=== PATIENT | female | born 1970 | race Caucasian/White ===

== ENCOUNTER → 2021-09-24 | Outpatient (CLI) | payer OTHER ==
--- NOTE | 2021-09-24 14:24 | KCIC ---
Bilateral digital screening mammograms: Reason for examination: Routine screening. Comparison is made to previous study dated 05/05/2014. Interpretation was made with the benefit of CAD. The skin and nipples show no abnormalities. No abnormal axillary lymph nodes are seen. The breast par enchyma shows scattered fibroglandular density. (Breast density: Category B.) There are no dominant m asses, suspicious calcifications or architectural distortions. Impression: No evidence of malignancy. Recommend routine screening. BI-RADS Category 1: Negative. "Our facility is accredited by the [employer] Mammography Program." This patient's information has been entered into a reminder system for the patient to be notified wit h the results of her examination and a target date for the next mammogram. Electronically signed by: Livier Lugo MD (09/24/2021 2:21 PM) [id number]
== END ==
LOC: KCIC MAMMO 13:41
PROVIDERS: ATTEND Physician Assistant
DX: Z12.31 Encounter for screening mammogram for malignant neoplasm of breast (principal)
CPT/HCPCS: 77067

== ENCOUNTER 2022-01-01 08:08 | Emergency (ER) | payer OTHER ==
[~2022-01-01] VITALS: Ht 149.9 cm; Wt 72.7 kg
[2022-01-01] MEDS ORDERED: IV NORMAL SALINE 1000ML BAG 1,000 ML IV SCH (08:30)
[2022-01-01] MEDS ORDERED: HYDROmorphone 2 MG/ML INJ. IVP ONE ×2 (08:30→10:15)
[2022-01-01 08:32] LABS: BASO # 0.1 x10^3/uL (0.0-0.2); BASO % 1 % (0-3); EOS # 0.1 x10^3/uL (0.0-0.7); EOS % 1 % (0-3); HEMOGLOBIN 14.3 g/dL (12.0-15.5); LYMPH # 1.9 x10^3/uL (1.0-4.8); LYMPH % 15 % (24-48); MEAN CORPUSCULAR HEMOGLOBIN 29 pg (25-35); MEAN CORPUSCULAR HGB CONC 33 g/dL (31-37); MEAN CORPUSCULAR VOLUME 89 fL (79-100); MONO # 0.7 x10^3/uL (0.0-1.1); MONO % 6 % (0-9); NEUT # 9.6 x10^3/uL (1.8-7.7); NEUT % 77 % (31-73); PLATELET COUNT 393 x10^3/uL (140-400); RED BLOOD COUNT 4.86 x10^6/uL (3.50-5.40); RED CELL DISTRIBUTION WIDTH 14.1 % (11.5-14.5); WHITE BLOOD COUNT 12.5 x10^3/uL (4.0-11.0)
[2022-01-01 08:43] LABS: CALCIUM 8.9 mg/dL (8.5-10.1); CREATININE 0.9 mg/dL (0.6-1.0); GFR 66.3
[2022-01-01 08:45] LABS: AMORPHOUS SEDIMENT,UR PRESENT /HPF; BACTERIA,URINE FEW /HPF (0-FEW); RBC,URINE 0 /HPF (0-2)
[2022-01-01 08:47] LABS: BARBITURATES NEG (NEG); BENZODIAZEPINES NEG (NEG); CANNABINOIDS NEG (NEG); COCAINE NEG (NEG); METHADONE NEG (NEG); OPIATES NEG (NEG); PHENCYCLIDINE NEG (NEG)
[2022-01-01 08:48] LABS: AMPHETAMINE/METHAMPHETAMINE NEG (NEG)
[2022-01-01 08:49] LABS: ALBUMIN 3.8 g/dL (3.4-5.0); TOTAL BILIRUBIN 0.3 mg/dL (0.2-1.0); TOTAL PROTEIN 7.7 g/dL (6.4-8.2)
--- NOTE | 2022-01-01 08:49 | RAD ---
INDICATION: Reason: RUQ pain / Spl. Instructions: / History: COMPARISON: None. TECHNIQUE: Grayscale and color ultrasound images obtained through the abdomen. FINDINGS: Pancreas: Visualized portions unremarkable. Liver: Liver is moderately echogenic. Gallbladder: Gallbladder is distended measuring up to 96 mm. Definite stones not seen. Common Bile Duct: Not dilated. Right Kidney: No hydronephrosis. Aorta/IVC: Visualized portion unremarkable. IMPRESSION: * Liver is echogenic. Nonspecific but can be seen with fatty infiltration. * Gallbladder is distended without definite stones. This can be seen with the patient not eating rec ently but would correlate with symptoms to ensure there is not a pathologic cause such as hydrops. Electronically signed by: Cristobal Victor MD (01/01/2022 8:46 AM) [id number]
[2022-01-01] MEDS ORDERED: IOHEXOL 300 MG/ML 100ML VIAL. IV ONE (09:15)
--- NOTE | 2022-01-01 09:53 | RAD ---
EXAMINATION: CT abdomen and pelvis with IV contrast. INDICATION:51 years, Female, epigastric pain. TECHNIQUE: Axial CT images of the abdomen and pelvis were obtained. Coronal and sagittal reformatted performed. COMPARISON: Same day ultrasound. Exposure: One or more of the following individualized dose reduction techniques were utilized for thi s examination: 1. Automated exposure control 2. Adjustment of the mA and/or kV according to patient size 3. Use of iterative reconstruction technique. FINDINGS: LOWER CHEST: Unremarkable. ABDOMEN/PELVIS: Normal size and morphology of the liver with homogeneous enhancement. No suspicious focal hepatic les ion. Mild gallbladder hydrops. No gallbladder wall thickening or pericholecystic fat stranding. Tiny calcified phthisis in the gallbladder neck. No biliary ductal dilation. Spleen and pancreas are unrem arkable. No adrenal nodule. No hydronephrosis in either kidney. Simple 3.3 cm left renal cyst. No bow el dilation. Normal appendix. Patent abdominal vasculatures. No lymphadenopathy. No pneumoperitoneum or ascites. Unremarkable urinary bladder and uterus. No suspicious pelvic masses. MUSCULOSKELETAL STRUCTURES: No acute osseous process or suspicious lesion. IMPRESSION: 1. Mild gallbladder hydrops with tiny calcified cholelithiasis in the neck. No other CT evidence of a cute cholecystitis. 2. Simple 3.3 cm left renal cyst. Electronically signed by: Janell Bear MD (01/01/2022 9:51 AM) [id number]
[2022-01-01] MEDS ORDERED: HYDR-2761 PO (10:08)
[2022-01-01] MEDS ORDERED: SULF1TAB24 PO (10:14)
[2022-01-01] MEDS ORDERED: IV NORMAL SALINE 1000ML BAG 1,000 ML IV ONE (10:15)
--- NOTE | 2022-01-01 11:20 | PHYS DOC ---
Past Medical History Past Surgical History: Tubal ligation, Other Additional Past Surgical Histo: lap for endometriosis Smoking Status: Never Smoker Alcohol Use: Occasionally General Adult EDM: Chief Complaint: ABDOMINAL PAIN HPI: HPI: Patient is a 51 year old female with no past medical history presents with right upper quadrant pain. Patient states that she ate a few sloppy Von's last night. Patient states that her pain started at 2 in the morning. She has never been diagnosed with gallstones. She states that her right upper quadrant hurts, she has nausea associated with it. Otherwise she is doing well. This is never happened before. She has no other systemic symptoms. Review of Systems: Review of Systems: Constitutional: Denies fever or chills. [] Eyes: Denies change in visual acuity. [] HENT: Denies nasal congestion or sore throat. [] Respiratory: Denies cough or shortness of breath. [] Cardiovascular: Denies chest pain or edema. [] GI: Positive abdominal pain, nausea, no vomiting, bloody stools or diarrhea. [] : Denies dysuria. [] Musculoskeletal: Denies back pain or joint pain. [] Integument: Denies rash. [] Neurologic: Denies headache, focal weakness or sensory changes. [] Endocrine: Denies polyuria or polydipsia. [] Lymphatic: Denies swollen glands. [] Psychiatric: Denies depression or anxiety. [] Heart Score: C/O Chest Pain: No Risk Factors: Risk Factors: DM, Current or recent (<one month) smoker, HTN, HLP, family history of CAD, obesity. Risk Scores: Score 0 - 3: 2.5% MACE over next 6 weeks - Discharge Home Score 4 - 6: 20.3% MACE over next 6 weeks - Admit for Clinical Observation Score 7 - 10: 72.7% MACE over next 6 weeks - Early Invasive Strategies Current Medications: Current Medications Medications (Trade) Dose Ordered Sig/Eddi Start Time Stop Time Status Last Admin Dose Admin Hydromorphone HCl (Dilaudid) 1 mg 1X ONCE 01/01/22 10:15 01/01/22 10:16 DC 01/01/22 10:43 1 MG Iohexol (Omnipaque 300 Mg/ml) 75 ml 1X ONCE 01/01/22 09:15 01/01/22 09:16 DC 01/01/22 09:17 75 ML Sodium Chloride 1,000 ml @ 1,000 mls/hr 1X ONCE 01/01/22 10:15 01/01/22 11:14 DC 01/01/22 10:43 1,000 MLS/HR Allergies: Allergies: Allergies Coded Allergies Type Severity Reaction Last Updated Verified No Known Drug Allergies 01/01/22 No Physical Exam: PE: Constitutional: Well developed, well nourished, no acute distress, non-toxic appearance. [] HENT: Normocephalic, atraumatic, bilateral external ears normal, oropharynx moist, no oral exudates, nose normal. [] Eyes: PERRLA, EOMI, conjunctiva normal, no discharge. [] Neck: Normal range of motion, no tenderness, supple, no stridor. [] Cardiovascular:Heart rate regular rhythm, no murmur [] Lungs & Thorax: Bilateral breath sounds clear to auscultation [] Abdomen: Bowel sounds normal, soft, positive moderate right upper quadrant tenderness, no masses, no pulsatile masses. [] Skin: Warm, dry, no erythema, no rash. [] Back: No tenderness, no CVA tenderness. [] Extremities: No tenderness, no cyanosis, no clubbing, ROM intact, no edema. [] Neurologic: Alert and oriented X 3, normal motor function, normal sensory function, no focal deficits noted. [] Psychologic: Affect normal, judgement normal, mood normal. [] Current Patient Data: Labs: Laboratory Tests Test 01/01/22 08:23 White Blood Count 12.5 x10^3/uL (4.0-11.0) H Red Blood Count 4.86 x10^6/uL (3.50-5.40) Hemoglobin 14.3 g/dL (12.0-15.5) Hematocrit 43.0 % (36.0-47.0) Mean Corpuscular Volume 89 fL (79-100) Mean Corpuscular Hemoglobin 29 pg (25-35) Mean Corpuscular Hemoglobin Concent 33 g/dL (31-37) Red Cell Distribution Width 14.1 % (11.5-14.5) Platelet Count 393 x10^3/uL (140-400) Neutrophils (%) (Auto) 77 % (31-73) H Lymphocytes (%) (Auto) 15 % (24-48) L Monocytes (%) (Auto) 6 % (0-9) Eosinophils (%) (Auto) 1 % (0-3) Basophils (%) (Auto) 1 % (0-3) Neutrophils # (Auto) 9.6 x10^3/uL (1.8-7.7) H Lymphocytes # (Auto) 1.9 x10^3/uL (1.0-4.8) Monocytes # (Auto) 0.7 x10^3/uL (0.0-1.1) Eosinophils # (Auto) 0.1 x10^3/uL (0.0-0.7) Basophils # (Auto) 0.1 x10^3/uL (0.0-0.2) Urine Collection Type Unknown Urine Color (Auto) Light yellow Urine Turbidity Hazy Urine pH (Auto) 8.5 (<5.0-8.0) Urine Specific [place] 1.018 (1.000-1.030) Urine Protein (Auto) Negative mg/dL (Negative) Urine Glucose (Auto)(UA) Negative mg/dL (Negative) Urine Ketones (Auto) Negative mg/dL (Negative) Urine Blood (Auto) Negative (Negative) Urine Nitrite Negative (Negative) Urine Bilirubin (Auto) Negative (Negative) Urine Urobilinogen (Auto) Normal mg/dL (Normal) Urine Leukocyte Esterase (Auto) Small (Negative) Urine RBC 0 /HPF (0-2) Urine WBC 5-10 /HPF (0-4) Urine Squamous Epithelial Cells Many /LPF Urine Amorphous Sediment Present /HPF Urine Bacteria Few /HPF (0-FEW) Sodium Level 137 mmol/L (136-145) Potassium Level 4.0 mmol/L (3.5-5.1) Chloride Level 101 mmol/L (98-107) Carbon Dioxide Level 25 mmol/L (21-32) Anion Gap 11 (6-14) Blood Urea Nitrogen 12 mg/dL (7-20) Creatinine 0.9 mg/dL (0.6-1.0) Estimated GFR (Cockcroft-Gault) 66.3 BUN/Creatinine Ratio 13 (6-20) Glucose Level 119 mg/dL (70-99) H Calcium Level 8.9 mg/dL (8.5-10.1) Total Bilirubin 0.3 mg/dL (0.2-1.0) Gamma Glutamyl Transpeptidase 24 U/L (5-55) Aspartate Amino Transferase (AST) 20 U/L (15-37) Alanine Aminotransferase (ALT) 26 U/L (14-59) Alkaline Phosphatase 80 U/L (46-116) Creatine Kinase 82 U/L (26-192) Troponin I High Sensitivity < 4 ng/L (4-50) L Total Protein 7.7 g/dL (6.4-8.2) Albumin 3.8 g/dL (3.4-5.0) Albumin/Globulin Ratio 1.0 (1.0-1.7) Lipase 99 U/L (73-393) Urine Opiates Screen Neg (NEG) Urine Methadone Screen Neg (NEG) Urine Barbiturates Neg (NEG) Urine Phencyclidine Screen Neg (NEG) Urine Amphetamine/Methamphetamine Neg (NEG) Urine Benzodiazepines Screen Neg (NEG) Urine Cocaine Screen Neg (NEG) Urine Cannabinoids Screen Neg (NEG) Urine Ethyl Alcohol Neg (NEG) Laboratory Tests 01/01/22 08:23 Laboratory Tests 01/01/22 08:23 Vital Signs: Vital Signs Date Time Temp Pulse Resp B/P (MAP) Pulse Ox O2 Delivery O2 Flow Rate FiO2 01/01/22 10:43 18 01/01/22 08:35 98.1 78 145/66 (92) 96 Room Air 98.1 EKG: EKG: Normal sinus rhythm [] Radiology/Procedures: Radiology/Procedures: Ultrasound consistent with possible hydrops gallbladder versus normal CT of the abdomen shows hydrops gallbladder with tiny calcified cholelithiasis in the neck, no features of acute cholecystitis on ultrasound or CT. [] Impression: Hydrops gallbladder with cholelithiasis, acute cystitis Course & Med Decision Making: Course & Med Decision Making Pertinent Labs and Imaging studies reviewed. (See chart for details) 51-year-old female seen and evaluated by myself, patient was given 1 mg of Dilaudid x2 for pain. Patient states that she felt much better after this. Reviewed the findings with the patient, labs within normal limits. Imaging consistent with hydrops gallbladder. Patient was discharged in normal stable condition, she was advised to follow-up with her primary care physician for referral to general surgeon for cholecystectomy. She does not require a cholecystectomy at this time. She was given instructions to watch out for acute cholecystitis, if she is having systemic symptoms or severe symptoms, she should return for emergent evaluation. There is a risk that she may progress to acute cholecystitis. She was given antibiotics for possible UTI as well. Mendy Disclaimer: Mendy Disclaimer: This electronic medical record was generated, in whole or in part, using a voice recognition dictation system. Departure Departure Impression: Primary Impression: Hydrops of gallbladder Disposition: HOME / SELF CARE / HOMELESS Condition: GOOD Patient Instructions: Cholelithiasis, [id number] Additional Instructions: Please return to the emergency department if you are having fever, chills, lightheadedness, severe symptoms, it may mean that your gallbladder is becoming inflamed or infected. Follow-up with your primary care physician in the next 3 to 5 days, you will need to be referred to a general surgeon to remove your gallbladder eventually. You can use pain medication for now to control your pain, avoid fatty foods as this will cause pain. Scripts Sulfamethoxazole/Trimethoprim (BACTRIM DS TABLET) 1 Each Tablet 1 TAB PO BID, #14 TAB Prov: AURELIA MESSINA MD 01/01/22 Hydrocodone Bit/Acetaminophen (HYDROCODONE-APAP 5-325 ) 1 Tab Tablet 1 TAB PO PRN Q6HRS PRN for PAIN, #14 TAB 0 Refills Prov: AURELIA MESSINA MD 01/01/22 AURELIA MESSINA MD January 01, 2022 11:20
[2022-01-01 11:55] VITALS: BP 108/55
--- NOTE | 2022-01-01 12:07 | EKG ---
[facility] [address] [place] [address] Test Date: 2022-01-01 Test Time: 08:47:16 Pat Name: AVIVA PETIT Department: Room: Gender: F Engine Monitor: : 1970 Requested By: AURELIA Whitman Number: [id number] Reading MD: Jesus Krishnamurthy Measurements Intervals [place] Rate: 75 P: 43 MT: 152 QRS: 16 QRSD: 76 T: 12 QT: 378 QTc: 425 Interpretive Statements SINUS RHYTHM Electronically Signed On 01-04-2022 10:36:20 CDT by Jesus Krishnamurthy
[2022-01-03] MEDS ORDERED: LYSI500T8 PO (20:30)
[2022-01-03] MEDS ORDERED: DIPH25CA58 PO (20:30)
[2022-01-03] MEDS ORDERED: OMEP20TA91 PO (20:30)
[2022-01-03] MEDS ORDERED: PRAM0.255 PO (20:30)
[2022-01-03] MEDS ORDERED: vitamin D2 (20:30)
[2022-01-03] MEDS ORDERED: vitamin D PO (20:30)
[2022-01-03] MEDS ORDERED: CITA40TA6 PO (20:30)
[2022-01-03] MEDS ORDERED: LAMO150T4 PO (20:30)
[2022-01-03] MEDS ORDERED: IBUP-1027 PO (20:30)
[2022-01-04] MEDS ORDERED: OXYC-325 PO (09:43)
== END 2022-01-01 11:55 | disposition home or self-care (01) ==
LOC: ER 08:08
DX: K82.1 Hydrops of gallbladder (principal); Z98.51 Tubal ligation status
CPT/HCPCS: 36415; 74177; 76705; 80053; 80307; 81001; 82550; 82977; 83690; 84484; 85025; 87086; 93005; 96361; 96374; 96375; 99285; J1170; J7030; Q9967